=== PATIENT | female | born 1985 | race Caucasian/White ===

== ENCOUNTER 2023-09-24 08:56 | Emergency (ER) | payer BC, MEDICAID, SELFPAY ==
[2023-09-24 09:09] VITALS: BP 150/84; PULSE 85; RESP 16; TEMP 36.8; O2SAT 98
--- NOTE | 2023-09-24 09:14 | ECG_ITS ---
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 Measurements Intervals [place] Rate: 83 P: -72 W[place]: 143 QRS: 81 QRSD: 87 T: 74 QT: 366 QTc: 430 Interpretive Statements ECTOPIC ATRIAL RHYTHM No previous ECG available for comparison Electronically Signed On 09-24-2023 17:39:31 CDT by Jordon Cortes M.D. [id number] f
[2023-09-24 09:44] VITALS: BP 141/109; O2SAT 100
[2023-09-24 10:14] VITALS: O2SAT 100
--- NOTE | 2023-09-24 10:45 | W.ED.GENADLT ---
HPI - General Adult General: Chief complaint: Nausea/Vomiting/Diarrhea Stated complaint: Fever, N/V Time Seen by Provider: 09/24/23 10:06 Source: patient Mode of arrival: ambulatory Limitations: no limitations History of Present Illness: Patient is a 38-year-old female presents to ED today with many complaints. She repeatedly states I am sick . She tells me that she knows she has a parasitic infection. She states she can feel the parasites inside of her and crawling on her skin. Patient states she has been on multiple rounds of ivermectin and mebendazole. States she was on these meds chronically did not have them while she was incarcerated. States she was released from [facility] last month. Patient states they have done many tests to try to identify her parasitic infection but all of them have came out normal. She tells me that she is covered in cysts throughout her body and that someone at some point was wanting to biopsy a cyst in her breast. She tells me she chronically has nausea and vomiting. She has been drinking to help with the pain. She tells me that she is running fevers and constantly feels hot. She states her symptoms have been going on for years . Pain Consistency: constant Relieving factors: none Exacerbating factors: none Associated symptoms: Reports nausea and vomiting; Deny chest pain, dyspnea, headache(s), palpitations or syncope Treatments prior to arrival: none Review of Systems Const: Reports: fever(s); Denies: body aches, change in appetite or change in weight Eyes: Denies: change in vision, blurry vision, photophobia, floaters or seeing flashes ENMT: Denies: throat pain, odynophagia, nasal discharge, nasal congestion or sinus pain Card: Denies: chest pain, palpitations, irregular heart rhythm, edema, swelling of feet/ankles, lightheadedness, syncope or pre-syncope Resp: Denies: dyspnea GI: Reports: abdominal pain, nausea and vomiting; Denies: hematemesis : Denies: flank pain, difficulty voiding, dysuria, urinary frequency, urinary urgency or urinary hesitancy Musc: Denies: neck pain, back pain, extremity pain or joint pain Skin/Breast: Reports: other (states she is covered in cysts ) Neuro: Denies: headache(s), numbness in extremities, weakness in extremities or sensory changes [facility] Female Reproductive History: Date of last menstrual period: 08/26/23 Physical Exam Const: COMMON NORMALS: no acute distress, average body habitus, patient oriented x3, no limitations, alert and well nourished GENERAL APPEARANCE: cooperative ORIENTATION/CONSCIOUSNESS: Yes awake, Yes oriented to person, Yes oriented to place and Yes oriented to time HENMT: COMMON NORMALS: normocephalic and atraumatic HEAD & SCALP: normal to inspection, normocephalic and atraumatic Eye: COMMON NORMALS: no scleral icterus GENERAL EYE: appearance normal, both eyes and all related structures and normal light reflex DIRECT OPHTHALMOSCOPY: Yes normal light reflex Neck/C-Spine: COMMON NORMALS: full ROM and no lymphadenopathy GENERAL: Yes normal visual inspection Chest: COMMONS NORMALS: normal inspection of the chest and normal palpation of entire chest wall Resp: COMMON NORMALS: normal respiratory effort and clear to auscultation bilaterally AUSCULTATION: clear to auscultation bilaterally Cardio: COMMON NORMALS: regular rate and regular rhythm RATE: regular rate RHYTHM: regular rhythm GI: COMMON NORMALS: Normal to inspection, nondistended, normoactive bowel sounds present, Soft to palpation, No hepatosplenomegaly present and no masses INSPECTION: Yes normal to inspection AUSCULTATION: Yes normoactive bowel sounds PALPATION: Yes Soft to palpation, Yes Tenderness to palpation present (GI) (mild epigastric-non surgical), No Guarding due to palpation present (GI), No Rigid due to palpation and Yes No hepatosplenomegaly present : COMMON NORMALS: Yes no CVA tenderness BLADDER/KIDNEY EXAM: Yes no CVA tenderness Back/Pelvis: COMMON NORMALS: no CVA tenderness and thoracic and lumbar spine normal to inspection Extremity: COMMON NORMALS: normal to inspection, full ROM and capillary refill normal GENERAL: Yes normal exam except as noted Neuro: RUDDY COMA SCALE: document GCS findings [place] coma scale eye opening: Spontaneous [place] coma scale verbal response: Orientated [place] coma scale motor response: Obey commands [place] coma scale total score: 15 COMMON NORMALS: patient oriented x3, CN's II-XII intact bilaterally, moves all extremities, no focal motor deficits, no sensory deficits noted and gait normal SENSORIUM/ORIENTATION: Yes alert, Yes oriented to person, Yes oriented to place and Yes oriented to time Skin: NARRATIVE SKIN EXAM: shows me multiple areas on her body that she states she can feel cysts and places where the parasites are crawling on her; there is a complete absence of any objective clinical findings Course Vital Signs: Vital signs: Vital Signs Temperature 98.3 F 09/24/23 09:09 Pulse Rate 85 09/24/23 09:09 Respiratory Rate 16 09/24/23 09:09 Blood Pressure 141/109 09/24/23 09:44 Pulse Oximetry 100 09/24/23 10:14 MDM - General Adult Medical Decision Making Patient's vital signs are unremarkable. Her blood work is completely normal. There is a complete absence of any objective clinical findings in regards to her cysts . She is convinced she has a parasitic infection states she can feel parasites crawling inside of her and on her skin. 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 Patient seems dissatisfied with her care stating I am sick-I am running fevers . I rechecked patient's temperature yet again and it is 98.6. Recommend patient follow-up with her primary care provider. Patient states she is leaving to go to a bigger hospital so they can figure out what is wrong with me . Medical Records I reviewed the patient's medical records. Lab Data I reviewed the patient's lab results. 09/24/23 10:30 09/24/23 10:30 Laboratory Results WBC 9.08 10^3/uL (3.29-11.43) 09/24/23 10:30 RBC 4.67 10^6/uL (3.85-5.65) 09/24/23 10:30 Hgb 14.30 g/dL (11.27-16.99) 09/24/23 10:30 Hct 41.9 % (36-47) 09/24/23 10:30 MCV 89.7 fl (85-98) 09/24/23 10:30 MCH 30.6 pg (27-33) 09/24/23 10:30 MCHC 34.1 g/dL (30-55) 09/24/23 10:30 RDW 13.4 % (12.1-15.1) 09/24/23 10:30 Plt Count 224 10^3/cmm (157-399) 09/24/23 10:30 MPV 9.7 fL (7.4-10.4) 09/24/23 10:30 Neut % (Auto) 55.6 % 09/24/23 10:30 Lymph % (Auto) 28.4 % 09/24/23 10:30 [place] % (Auto) 9.6 % 09/24/23 10:30 Eos % (Auto) 5.1 % 09/24/23 10:30 Baso % (Auto) 0.4 % 09/24/23 10:30 Neut # (Auto) 5.05 10^3/uL (1.8-7.7) 09/24/23 10:30 Lymph # (Auto) 2.6 10^3/uL (0.8-4.8) 09/24/23 10:30 [place] # (Auto) 0.9 10^3/uL (0.2-0.9) 09/24/23 10:30 Eos # (Auto) 0.5 10^3/uL (0.0-0.8) 09/24/23 10:30 Baso # (Auto) 0.0 10^3/uL (0.0-0.1) 09/24/23 10:30 Nucleated RBC % (auto) 0 % 09/24/23 10:30 Nucleated RBCs # 0.0 /100WBC 09/24/23 10:30 Sodium 139 mmol/L (136-145) 09/24/23 10:30 Potassium 4.2 mmol/L (3.5-5.1) 09/24/23 10:30 Chloride 102 mmol/L (98-107) 09/24/23 10:30 Carbon Dioxide 25 mmol/L (22-29) 09/24/23 10:30 Anion Gap 16.2 (5-19) 09/24/23 10:30 BUN 7 mg/dL (6-20) 09/24/23 10:30 Creatinine 0.6 mg/dL (0.5-0.9) 09/24/23 10:30 GFR Calculation 110.7 mL/min (90-130) 09/24/23 10:30 Glucose 74 mg/dL (65-115) 09/24/23 10:30 Calculated Osmolality 285 mOsm/kg (285-295) 09/24/23 10:30 Calcium 8.9 mg/dL (8.5-10.5) 09/24/23 10:30 Total Bilirubin 0.5 mg/dL (0.15-1.2) 09/24/23 10:30 AST 38 U/L (0-32) H 09/24/23 10:30 ALT 29 U/L (0-33) 09/24/23 10:30 Alkaline Phosphatase 76 U/L (35-105) 09/24/23 10:30 Total Protein 7.7 g/dL (6.6-8.7) 09/24/23 10:30 Albumin 4.7 g/dL (3.5-5.2) 09/24/23 10:30 Globulin 3.0 g/dL (1.3-4.6) 09/24/23 10:30 Lipase 24 U/L (13-60) 09/24/23 10:30 HCG, Qual Negative (Negative) 09/24/23 10:30 Urine Color Yellow (Yellow) 09/24/23 11:37 Urine Appearance Clear (CLEAR) 09/24/23 11:37 Urine pH 5 (5-7) 09/24/23 11:37 Ur Specific [place] 1.010 (1.005-1.030) 09/24/23 11:37 Urine Protein Neg (Negative) 09/24/23 11:37 Urine Glucose (UA) Norm (Normal) 09/24/23 11:37 Urine Ketones Negative (Negative) 09/24/23 11:37 Urine Blood Neg (Negative) 09/24/23 11:37 Urine Nitrate Negative (Negative) 09/24/23 11:37 Urine Bilirubin Neg (Negative) 09/24/23 11:37 Urine Urobilinogen Neg mg/dL (Negative) 09/24/23 11:37 Ur Leukocyte Esterase Negative (Negative) 09/24/23 11:37 No radiology studies performed this visit Discharge Plan Discharge Patient Disposition: Home Clinical Impression: Normal exam, Psychogenic formication Condition: Stable Prescriptions: No Action ondansetron HCl 4 mg tablet 4 mg PO Q8H PRN (Reason: Pain) sulfamethoxazole-trimethoprim 800-160 mg tablet 1 tab PO BID Rx Instructions: for 10 days (rx filled 09/19/23) ibuprofen 200 mg Tablet 600 mg PO Q6H PRN (Reason: Pain) Discharge Orders: Discharge ED (Routine); Ordered 09/24/23 Ordered By: Kathryn Beard Activity Restrictions/Additional Instructions: As we discussed I would like you to follow-up with your primary care provider for further evaluation. 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
[2023-09-24 10:56] LABS: Basophils % 0.4 %; Eosinophils # 0.5 10^3/uL (0.0-0.8); Eosinophils % 5.1 %; Hematocrit 41.9 % (36-47); Lymphocytes # 2.6 10^3/uL (0.8-4.8); Lymphocytes % 28.4 %; Mean Corpuscular HGB Conc 34.1 g/dL (30-55); Mean Corpuscular Hemoglobin 30.6 pg (27-33); Mean Corpuscular Volume 89.7 fl (85-98); Mean Platelet Volume 9.7 fL (7.4-10.4); Monocytes # 0.9 10^3/uL (0.2-0.9); Monocytes % 9.6 %; Neutrophils # 5.05 10^3/uL (1.8-7.7); Neutrophils % 55.6 %; Nucleated Red Blood Cells % 0 %; Platelet Count 224 10^3/cmm (157-399); Red Blood Count 4.67 10^6/uL (3.85-5.65); Red Cell Distribution Width 13.4 % (12.1-15.1); White Blood Count 9.08 10^3/uL (3.29-11.43)
[2023-09-24 11:13] LABS: HCG, Serum Qual Negative (Negative)
[2023-09-24 11:16] LABS: Alanine Aminotransferase 29 U/L (0-33); Albumin Level 4.7 g/dL (3.5-5.2); Alkaline Phosphatase 76 U/L (35-105); Anion Gap 16.2 (5-19); Aspartate Amino Transferase 38 U/L (0-32); Blood Urea Nitrogen 7 mg/dL (6-20); Calcium 8.9 mg/dL (8.5-10.5); Carbon Dioxide 25 mmol/L (22-29); Chloride 102 mmol/L (98-107); Glomerular Filtration Rate 110.7 mL/min (90-130); Glucose 74 mg/dL (65-115); Lipase 24 U/L (13-60); Osmolality Calculated 285 mOsm/kg (285-295); Potassium 4.2 mmol/L (3.5-5.1); Sodium 139 mmol/L (136-145); Total Bilirubin 0.5 mg/dL (0.15-1.2); Total Protein 7.7 g/dL (6.6-8.7)
[2023-09-24 11:43] LABS: Add Urine Microscopic? NO; Charge for UA Resulting for Rev
[2023-09-24 11:47] LABS: Bilirubin Urine Neg (Negative); Blood Urine Neg (Negative); Glucose Urine UA Norm (Normal); Ketones Urine Negative (Negative); Leukocyte Esterase Urine Negative (Negative); Nitrate Urine Negative (Negative); Protein Urine Neg (Negative); Urine Appearance Clear (CLEAR); Urine Color Yellow (Yellow); Urobilinogen Urine Neg (Negative); pH Urine 5 (5-7)
== END 2023-09-24 12:18 | disposition home or self-care (01) ==
PROVIDERS: Emergency Provider Physician Assistant
DX: F45.8 Other somatoform disorders (principal)
CPT/HCPCS: 36415; 80053; 81003; 83690; 84703; 85025; 93005; 99284